=== PATIENT | female | born 1960 | race Caucasian/White ===

== ENCOUNTER → 2016-07-01 | Outpatient (CLI) | payer OTHER ==
--- NOTE | 2016-07-01 12:11 | KCIC ---
PROCEDURE MRI right knee without contrast. HISTORY Right knee pain. TECHNIQUE MRI of the right knee was performed without intravenous contrast. FINDINGS The anterior cruciate ligament is high in signal but remains intact. The posterior cruciate ligament is intact. The medial collateral ligament and lateral collateral ligament complex are intact. The extensor mechanism and patellar retinacula are intact. There is a complex tear of the posterior horn and body of the medial meniscus. The meniscal body is partially extruded. The lateral meniscus is intact. Cartilage loss reaches full thickness of the medial corner of the medial tibial plateau with focal subchondral edema. It is moderate and partial thickness along the medial femoral condyles. It is mild and partial-thickness in the lateral compartment. The patellofemoral compartmental cartilage appears preserved. There are moderate osteophytes along the medial compartment. There is only trace joint fluid. Fluid extends into the gastrocnemius-semimembranosus bursa. IMPRESSION - Complex tear of the posterior horn and body of the medial meniscus. Extrusion of the medial meniscal body. - Cartilage loss reaches full thickness focally in the medial compartment. It is mild elsewhere. Overall moderate medial compartmental osteoarthritis. Electronically signed by: Jan Calzada (Jul 01, 2016 12:10:12)
== END | disposition home or self-care (01) ==
LOC: KCIC MRI 10:41
PROVIDERS: ATTEND Family Medicine
DX: M17.11 Unilateral primary osteoarthritis, right knee (principal); S83.241A Other tear of medial meniscus, current injury, right knee, initial encounter; X58.XXXA Exposure to other specified factors, initial encounter; Y93.89 Activity, other specified; Y92.89 Other specified places as the place of occurrence of the external cause; Y99.8 Other external cause status; R60.9 Edema, unspecified
CPT/HCPCS: 73721

== ENCOUNTER → 2019-12-14 | Outpatient (CLI) | payer OTHER ==
--- NOTE | 2019-12-14 15:39 | CARD ---
MR#: [id number] Date of Study: 12/14/2019 Ordering Physician: SHANDRA VIZCARRA, Referring Physician: SHANDRA VIZCARRA, Tech: Trixie Lee APPROVED REPORT EXAM: Two-dimensional and M-mode echocardiogram with Doppler and color Doppler. Other Information Quality : AverageHR: 65bpm INDICATION Dyspnea 2D DIMENSIONS RVDd3.1 (2.9-3.5cm)Left Atrium(2D)3.0 (1.6-4.0cm) IVSd1.0 (0.7-1.1cm)Aortic Root(2D)3.4 (2.0-3.7cm) LVDd4.9 (3.9-5.9cm)LVOT Diameter1.9 (1.8-2.4cm) PWd1.0 (0.7-1.1cm)LVDs3.2 (2.5-4.0cm) FS (%) 8.1 %SV7.0 ml LVEF(%)60.9 (>50%) Aortic Valve AoV Peak Hugo.147.8cm/sAoV VTI29.1cm AO Peak GR.8.7mmHgLVOT Peak Hugo.104.8cm/s LVOT VTI 20.47cmAO Mean GR.5mmHg JOSE (VMAX)1.81xx3FLE (VTI)1.97cm2 AI P 1/2 Pelg711fo Mitral Valve MV E Avhtlocz15.2cm/sMV DECEL [id number] MV A Mntkqupu80.1cm/sMV E Mean Gr.2mmHg MV BML29rrY/A Ratio1.1 MVA (PHT)3.74cm2 TDI E/Lateral E'9.8E/Medial E'9.3 Pulmonary Valve PV Peak Vwpllrbc01.6cm/sPV Peak Grad.4mmHg Tricuspid Valve TR P. Mhacvsit421mu/sRAP [id number] TR Peak Gr.69fpKpHUGN42pwHk Pulmonary Vein S1 Ikoeapby17.9cm/sD2 Jubcgaro37.8cm/s PVa abvdiaqe720pnlc LEFT VENTRICLE The left ventricle is normal size. There is normal left ventricular wall thickness. The left ventricu lar systolic function is normal. The Ejection Fraction is 55-60%. There is normal LV segmental wall m otion. RIGHT VENTRICLE The right ventricle is normal size. There is normal right ventricular wall thickness. The right ventr icular systolic function is normal. ATRIA The left atrium size is normal. The right atrium size is normal. The interatrial septum is intact wit h no evidence for an atrial septal defect or patent foramen ovale as noted on 2-D or Doppler imaging. AORTIC VALVE The aortic valve is normal in structure and function. Doppler and Color Flow revealed trace aortic re gurgitation. There is no significant aortic valvular stenosis. Calculated aortic valve area is 2.13 c m2 with maximum pressure gradient of 11 mmHg and mean pressure gradient of 6 mmHg. MITRAL VALVE The mitral valve is normal in structure and function. There is no evidence of mitral valve prolapse. There is no mitral valve stenosis. Doppler and Color-flow revealed trace mitral regurgitation. TRICUSPID VALVE The tricuspid valve is normal in structure and function. Doppler and Color Flow revealed trace tricus pid regurgitation with an estimated PAP of 27 mmHg. There is no tricuspid valve stenosis. PULMONIC VALVE The pulmonic valve is not well visualized. Doppler and Color Flow revealed no pulmonic valvular regur gitation. GREAT VESSELS The aortic root is normal in size. The ascending aorta is normal in size. The IVC is normal in size a nd collapses >50% with inspiration. PERICARDIAL EFFUSION There is no evidence of significant pericardial effusion. Critical Notification Critical Value: No <Conclusion> The left ventricular systolic function is normal. The Ejection Fraction is 55-60%. There is normal LV segmental wall motion. Trace mitral regurgitation. Trace tricuspid regurgitation with an estimated PAP of 27 mmHg. There is no evidence of significant pericardial effusion. Signed by : Nam Dennis, Electronically Approved : 12/14/2019 15:38:47
== END | disposition home or self-care (01) ==
LOC: ECHO 09:51
PROVIDERS: ATTEND Internal Medicine Cardiovascular Disease
DX: R06.00 Dyspnea, unspecified (principal)
CPT/HCPCS: 93306

== ENCOUNTER → 2019-12-30 | Outpatient (CLI) | payer OTHER | END | disposition home or self-care (01) | LOC: LAB 13:55 | PROVIDERS: ATTEND Internal Medicine Cardiovascular Disease | DX: Z20.828 Contact with and (suspected) exposure to other viral communicable diseases (principal) | CPT/HCPCS: U0003-CS ==

== ENCOUNTER 2020-01-03 07:01 | Outpatient (CLI) | payer OTHER ==
[2020-01-03] VITALS (10 sets, daily range): BP systolic 81–120; BP diastolic 44–70
[~2020-01-03] VITALS: Ht 165.1 cm; Wt 113.4 kg
[2020-01-03] MEDS ORDERED: MULT-496 PO (07:06)
[2020-01-03] MEDS ORDERED: MAGN400C PO (07:06)
[2020-01-03] MEDS ORDERED: glucosamine PO (07:06)
[2020-01-03] MEDS ORDERED: ASCO500C PO (07:06)
[2020-01-03] MEDS ORDERED: tumeric PO (07:06)
[2020-01-03] MEDS ORDERED: NITR0.4T24 SL (07:06)
[2020-01-03] MEDS ORDERED: TRAM50TA PO (07:06)
[2020-01-03] MEDS ORDERED: HYDR25TA PO (07:06)
[2020-01-03] MEDS ORDERED: METO25TA4 PO (07:06)
[2020-01-03] MEDS ORDERED: calcium 600 PO (07:06)
[2020-01-03] MEDS ORDERED: HEPARIN for ARTERIAL LINE 1,500 ML ONE (07:37)
[2020-01-03] MEDS ORDERED: IODIXANOL 320 MG/ML 100 ML VIAL. ONE (07:37)
[2020-01-03] MEDS ORDERED: LIDOCAINE 1% PF 2 ML VIAL. ONE (07:37)
[2020-01-03 07:41] LABS: HEMATOCRIT 40.8 % (36.0-47.0); HEMOGLOBIN 13.7 g/dL (12.0-15.5); RED BLOOD COUNT 4.7 x10^6/uL (3.50-5.40); RED CELL DISTRIBUTION WIDTH 13.5 % (11.5-14.5); WHITE BLOOD COUNT 4.7 x10^3/uL (4.0-11.0)
[2020-01-03 07:45] LABS: CALCIUM 9.4 mg/dL (8.5-10.1); CREATININE 0.7 mg/dL (0.6-1.0); GFR 85.4
[2020-01-03] MEDS ORDERED: CHOL10003 PO (07:52)
[2020-01-03] MEDS ORDERED: ASPI-630 PO (07:52)
[2020-01-03 07:56] LABS: PROTHROMBIN TIME PATIENT 12.3 SEC (11.7-14.0)
[2020-01-03] MEDS ORDERED: MIDAZOLAM HCL/PF 2 MG/2 ML VIAL. ONE (08:21)
[2020-01-03] MEDS ORDERED: fentaNYL PF VIAL 100 MCG/2 ML VIAL ONE (08:21)
[2020-01-03] MEDS ORDERED: HEPARIN for IV BOLUS 10,000 UNIT/10 ML VIAL. ONE (08:22)
[2020-01-03] MEDS ORDERED: VERAPAMIL 5 MG/2 ML VIAL. ONE (08:22)
[2020-01-03] MEDS ORDERED: NITROGLYCERIN 200 MCG/2 ML SYRINGE FOR CATH/VASC LAB. ONE (08:22)
[2020-01-03] MEDS ORDERED: diphenhydrAMINE 50 MG/ML VIAL ONE (08:38)
[2020-01-03] MEDS ORDERED: LIDOCAINE 1% Multi-Dose 20 ML VIAL. ONE (08:50)
[2020-01-03] MEDS ORDERED: MIDAZOLAM HCL/PF 2 MG/2 ML VIAL. IV ONE (09:00)
[2020-01-03] MEDS ORDERED: diphenhydrAMINE 50 MG/ML VIAL IVP ONE (09:00)
[2020-01-03] MEDS ORDERED: LIDOCAINE 1% Multi-Dose 20 ML VIAL. INJ ONE (09:00)
[2020-01-03] MEDS ORDERED: fentaNYL PF VIAL 100 MCG/2 ML VIAL IV ONE (09:00)
[2020-01-03] MEDS ORDERED: IODIXANOL 320 MG/ML 100 ML VIAL. IART ONE (09:00)
[2020-01-03] MEDS ORDERED: CONTRAST GIVEN. MC PRN (09:15)
--- NOTE | 2020-01-03 09:33 | PDOC1 ---
History and Physical Visit Information Date of Admission: January 03, 2020 History of Present Illness History of Present Illness Patient is a 59-year-old woman coming into the catheterization laboratory for a cardiac catheterization in the setting of an abnormal stress test. She was seen in the office and reported dyspnea and some chest pressure and underwent a myocardial perfusion study. This perfusion study revealed an anterior wall perfusion abnormality. After discussion of the risks and benefits the patient was brought to the catheterization laboratory for further evaluation and treatment. Cardiac Risk Factors Comments Obesity Tobacco abuse, quit smoking 6 years ago Current Medications Current Medications Current Medications Diphenhydramine HCl (Benadryl) 25 mg 1X ONCE IVP Last administered on 01/03/20at 09:13; Start 01/03/20 at 09:00; Stop 01/03/20 at 09:03; Status DC Diphenhydramine HCl (Benadryl) 50 mg STK-MED ONCE .ROUTE ; Start 01/03/20 at 08:38; Stop 01/03/20 at 08:39; Status DC Fentanyl Citrate (Fentanyl 2ml Vial) 50 mcg 1X ONCE IV Last administered on 01/03/20at 09:13; Start 01/03/20 at 09:00; Stop 01/03/20 at 09:03; Status DC Fentanyl Citrate (Fentanyl 2ml Vial) 100 mcg STK-MED ONCE .ROUTE ; Start 01/03/20 at 08:21; Stop 01/03/20 at 08:22; Status DC Heparin Sodium (Porcine) (Heparin Sodium) 10,000 unit STK-MED ONCE .ROUTE ; Start 01/03/20 at 08:22; Stop 01/03/20 at 08:22; Status DC Heparin Sodium/ Sodium Chloride 1,500 ml @ As Directed STK-MED ONCE .ROUTE ; Start 01/03/20 at 07:37; Stop 01/03/20 at 07:37; Status DC Heparin Sodium/ Sodium Chloride (HEPARIN for ARTERIAL LINE FLUSH) 1,000 unit 1X ONCE IART Last administered on 01/03/20at 09:11; Start 01/03/20 at 09:00; Stop 01/03/20 at 09:03; Status DC Info (CONTRAST GIVEN -- Rx MONITORING) 1 each PRN DAILY PRN MC SEE COMMENTS; Start 01/03/20 at 09:15; Stop 01/05/20 at 09:14 Iodixanol (Visipaque 320) 100 ml 1X ONCE IART Last administered on 01/03/20at 09:12; Start 01/03/20 at 09:00; Stop 01/03/20 at 09:03; Status DC Iodixanol (Visipaque 320) 100 ml STK-MED ONCE .ROUTE ; Start 01/03/20 at 07:37; Stop 01/03/20 at 07:37; Status DC Lidocaine HCl (Lidocaine 1% 20ml Vial) 10 ml 1X ONCE INJ Last administered on 01/03/20at 09:12; Start 01/03/20 at 09:00; Stop 01/03/20 at 09:03; Status DC Lidocaine HCl (Lidocaine 1% 20ml Vial) 20 ml STK-MED ONCE .ROUTE ; Start 01/03/20 at 08:50; Stop 01/03/20 at 08:50; Status DC Lidocaine HCl (Xylocaine-Mpf 1% 2ml Vial) 2 ml STK-MED ONCE .ROUTE ; Start 01/03/20 at 07:37; Stop 01/03/20 at 07:37; Status DC Midazolam HCl (Versed) 2 mg 1X ONCE IV Last administered on 01/03/20at 09:13; Start 01/03/20 at 09:00; Stop 01/03/20 at 09:04; Status DC Midazolam HCl (Versed) 2 mg STK-MED ONCE .ROUTE ; Start 01/03/20 at 08:21; Stop 01/03/20 at 08:22; Status DC Nitroglycerin (Nitroglycerin) 200 mcg STK-MED ONCE .ROUTE ; Start 01/03/20 at 08:22; Stop 01/03/20 at 08:22; Status DC Verapamil HCl (Verapamil) 5 mg STK-MED ONCE .ROUTE ; Start 01/03/20 at 08:22; Stop 01/03/20 at 08:22; Status DC Allergies Allergies Allergies Coded Allergies Type Severity Reaction Last Updated Verified morphine Allergy Intermediate rash , very itchy 01/03/20 Yes Social History Comments No alcohol, tobacco or illicit drug use. She is . Family History Comments Noncontributory. ROS Review of System Negative for 10 out of 14 systems reviewed unless otherwise mentioned above in HPI Physical Exam Comments The patient appeared well nourished and normally developed. Head exam is unremarkable. No scleral icterus or corneal arcus noted. Neck is without jugular venous distension, thyromegaly, or carotid bruits. Carotid upstrokes are brisk bilaterally. Lungs are clear to auscultation and percussion. Cardiac exam reveals the PMI to be normally sized and situated. Rhythm is regular. First and second heart sounds normal. No murmurs, rubs or gallops. Abdominal exam reveals normal bowel sounds, no masses, no organomegaly and no aortic enlargement. Extremities are nonedematous and both femoral and pedal pulses are normal. Msk: No traumua Neuro: No focal deficits Vitals VITALS Vital Signs Date Time Temp Pulse Resp B/P (MAP) Pulse Ox O2 Delivery O2 Flow Rate FiO2 01/03/20 09:13 12 100 Nasal Cannula 2.0 01/03/20 07:54 98.5 61 120/66 (84) 98.5 Labs Labs Laboratory Tests Test 01/03/20 07:30 White Blood Count 4.7 x10^3/uL (4.0-11.0) Red Blood Count 4.70 x10^6/uL (3.50-5.40) Hemoglobin 13.7 g/dL (12.0-15.5) Hematocrit 40.8 % (36.0-47.0) Mean Corpuscular Volume 87 fL (79-100) Mean Corpuscular Hemoglobin 29 pg (25-35) Mean Corpuscular Hemoglobin Concent 34 g/dL (31-37) Red Cell Distribution Width 13.5 % (11.5-14.5) Platelet Count 220 x10^3/uL (140-400) Prothrombin Time 12.3 SEC (11.7-14.0) Prothromb Time International Ratio 1.0 (0.8-1.1) Sodium Level 142 mmol/L (136-145) Potassium Level 4.0 mmol/L (3.5-5.1) Chloride Level 105 mmol/L (98-107) Carbon Dioxide Level 31 mmol/L (21-32) Anion Gap 6 (6-14) Blood Urea Nitrogen 10 mg/dL (7-20) Creatinine 0.7 mg/dL (0.6-1.0) Estimated GFR (Cockcroft-Gault) 85.4 Glucose Level 120 mg/dL (70-99) Calcium Level 9.4 mg/dL (8.5-10.1) Laboratory Tests Test 01/03/20 07:30 White Blood Count 4.7 x10^3/uL (4.0-11.0) Red Blood Count 4.70 x10^6/uL (3.50-5.40) Hemoglobin 13.7 g/dL (12.0-15.5) Hematocrit 40.8 % (36.0-47.0) Mean Corpuscular Volume 87 fL (79-100) Mean Corpuscular Hemoglobin 29 pg (25-35) Mean Corpuscular Hemoglobin Concent 34 g/dL (31-37) Red Cell Distribution Width 13.5 % (11.5-14.5) Platelet Count 220 x10^3/uL (140-400) Prothrombin Time 12.3 SEC (11.7-14.0) Prothromb Time International Ratio 1.0 (0.8-1.1) Sodium Level 142 mmol/L (136-145) Potassium Level 4.0 mmol/L (3.5-5.1) Chloride Level 105 mmol/L (98-107) Carbon Dioxide Level 31 mmol/L (21-32) Anion Gap 6 (6-14) Blood Urea Nitrogen 10 mg/dL (7-20) Creatinine 0.7 mg/dL (0.6-1.0) Estimated GFR (Cockcroft-Gault) 85.4 Glucose Level 120 mg/dL (70-99) Calcium Level 9.4 mg/dL (8.5-10.1) ECG EKG: NSR VTE Prophylaxis Ordered VTE Prophylaxis Devices: No VTE Pharmacological Prophylaxi: No Assessment/Plan Assessment/Plan 1. Positive stress test in the setting of obesity, severe fatigue and dyspnea in a postmenopausal female. Plan is for cardiac catheterization and further evaluation and treatment as needed. Justicifation of Admission Dx: Justifications for Admission: Justification of Admission Dx: N/A SHANDRA VIZCARRA MD Jan 03, 2020 09:33
--- NOTE | 2020-01-03 11:46 | CARD ---
MR#: [id number] Date of Study: 01/03/2020 Ordering Physician: SHANDRA CARRILLO, Referring Physician: SHANDRA CARRILLO, Tech: Vianey Schmitz RT(R) APPROVED REPORT Technologist: Vianey Schmitz RT(R) Nurse: Mariah Nuno R.N. Procedure(s) performed: Sedation Time: 34 Minutes Dose: 46.51 Gycm2 Contrast: 60 mL Visipaque Fluorto Time: 2.5 Minutes LHC, Coronary angiography, Left ventriculogram HISTORY The patient is a 59 year-old female with a history of : tobacco history() . INDICATION The indication(s) include : positive stress test, unstable angina . CSHA Clinical Frailty Scale CS Clinical Frailty Scale: Mildly Frail Heart Failure Heart Failure: Yes If Yes, Newly Diagnosed: Yes If Yes, HF Type: Diastolic If Yes, NYHA Class: Class II CASE TECHNIQUE During this case, Fluoroscopy and low osmolar contrast were used for imaging. PROCEDURE NARRATIVE After appropriate informed consent the patient was brought to the catheterization laboratory for a di agnostic coronary angiogram. Indication: Dyspnea with a positive stress test with anterior wall ischemia. Procedure details: Under 2% lidocaine local anesthesia the right common femoral artery was cannulated with a 18-gauge ne edle and a 5 [place] sheath was placed without difficulty via the modified Seldinger technique. The r adial artery was unable to be used due to nonpalpable radial and ulnar pulses. Next, diagnostic luma ography was performed with a JL4 and JR4 catheter. Left ventriculography was obtained with a pigtail catheter. Findings: LVEDP 15 mmHg No aortic gradient on pullback. Left ventriculogram reveals normal LV systolic function without any significant wall motion abnormali ties. No significant mitral or aortic insufficiency. Coronary angiography: Left main is a large-caliber vessel with normal angiographic appearance LAD is a moderate caliber vessel with normal angiographic appearance Left circumflex is a moderate caliber vessel with normal angiographic appearance. RCA is a moderate caliber dominant vessel with normal angiographic appearance. At case completion the right femoral sheath was removed and hemostasis was achieved with an Angio-Sea l device. No acute complications are noted. Conclusion 1. Normal left-sided filling pressures 2. Normal LV systolic function, EF 55% 3. No significant angiographic evidence of coronary disease. Recommendations 1. Aggressive medical therapy and lifestyle modification for obesity. Signed by : Shandra Carrillo, Electronically Approved : 01/03/2020 11:45:50
--- NOTE | 2020-01-03 13:28 | NUR ---
pt A&O x3. denies pain, nausea or dizziness. rt groin site is clean and dry. tolerating po well. ambulated to BR w/o problem. VSS. pt's b/p was a little low while she was sleeping post sedation- 1 liter of NS given. b/p now back up to baseline. d/c instructions given , questions answered. out to vehicle per w/c- pt's to drive her home
== END 2020-01-03 13:25 | disposition home or self-care (01) ==
LOC: CCL 07:01
PROVIDERS: ATTEND Internal Medicine Cardiovascular Disease
DX: R94.39 Abnormal result of other cardiovascular function study (principal); I20.0 Unstable angina; E66.9 Obesity, unspecified; Z68.41 Body mass index [BMI] 40.0-44.9, adult; Z87.891 Personal history of nicotine dependence; Z88.8 Allergy status to other drugs, medicaments and biological substances; Z79.899 Other long term (current) drug therapy
CPT/HCPCS: 36415; 80048; 85027; 85610; 93458; 99152; 99153; C1760; C1769; C1892; G0269; J1200; J1644; J2250; J3010; J3490; Q9967; C1771